=== PATIENT | female | born 1965 | race Caucasian/White ===

== ENCOUNTER → 2017-10-07 08:55 | Outpatient (CLI) | payer OTHER ==
[~2017-10-07 08:55] MED LIST: ALTACE1.25 M1 PO; BACLOFEN20 MG PO; DIOVAN40 MG PO; FIORICET TABLET1 TAB PO; FLUOXETINE HCL10 MG PO; GLIPIZIDE5 MG PO; METFORMIN HCL500 MG PO; ONGLYZA2.5 MG; PYRIDIUM100 M1 PO; SKELAXIN800 MG PO; ULTRACET PO; VASOTEC10 MG PO; VASOTEC5 MG
== END | disposition home or self-care (01) ==
LOC: LAB 08:55
DX: D50.9 Iron deficiency anemia, unspecified (principal); N19 Unspecified kidney failure; N39.0 Urinary tract infection, site not specified; Z71.3 Dietary counseling and surveillance; E55.9 Vitamin D deficiency, unspecified; E03.8 Other specified hypothyroidism; E11.9 Type 2 diabetes mellitus without complications

== ENCOUNTER 2018-09-16 11:01 | Outpatient (CLI) | payer OTHER | END 2018-09-16 11:12 | disposition home or self-care (01) | LOC: RAD 501 11:01 | DX: N20.0 Calculus of kidney (principal) ==

== ENCOUNTER 2018-09-16 13:59 | Outpatient (CLI) | payer OTHER | END 2018-09-16 14:16 | disposition home or self-care (01) | LOC: TOM 13:59 | DX: R10.84 Generalized abdominal pain (principal) ==

== ENCOUNTER 2018-09-16 15:37 | Outpatient (CLI) | payer OTHER | END 2018-09-16 15:42 | disposition home or self-care (01) | LOC: LAB 15:37 | DX: E11.9 Type 2 diabetes mellitus without complications (principal); I10 Essential (primary) hypertension ==

== ENCOUNTER → 2020-02-14 | Emergency (ER) | payer OTHER ==
[~2020-02-14] VITALS: Ht 167.6 cm; Wt 117.9 kg
[~2020-02-14] MED LIST changes: +METFORMIN HCL1000 M2
== END | disposition left against medical advice (07) ==
LOC: ER 11:55
DX: Z53.20 Procedure and treatment not carried out because of patient's decision for unspecified reasons (principal)

== ENCOUNTER 2020-02-27 09:23 | Outpatient (CLI) | payer OTHER | END 2020-02-27 09:26 | disposition home or self-care (01) | LOC: NUCLEAR 09:23 | PROVIDERS: ATTEND Internal Medicine Pulmonary Disease | DX: R06.09 Other forms of dyspnea (principal); R94.31 Abnormal electrocardiogram [ECG] [EKG] ==